=== PATIENT | female | born 1985 | race Caucasian/White ===

== ENCOUNTER 2018-10-02 23:17 | Inpatient (IN) | payer OTHER ==
[~2018-10-02] VITALS: Ht 160 cm; Wt 107.7 kg
[2018-10-02] MEDS ORDERED: COLA100C5 PO (23:24)
[2018-10-02] MEDS ORDERED: PROAAER10 INH (23:24)
[2018-10-02] MEDS ORDERED: SENN1TAB41 PO (23:24)
[2018-10-02] MEDS ORDERED: CARD120T4 PO (23:24)
[2018-10-02] MEDS: IPRATROPIUM 0.5MG/ALBUTEROL 2.5MG INH SOL UD 3ML (DUONEB)(J7620) NEB PRN ×2 (23:40→23:46)
[2018-10-02] MEDS ORDERED: methylPREDNISolone INJ 125 MG/2 ML VIAL (J2930) IV ONE (23:45)
[2018-10-03 00:18] LABS: BASO % 0.3 % (0.0-1.0); EOS # 0.5 10^3/uL (0.0-0.50); EOS % 4.1 % (0.0-3.0); HEMATOCRIT 38.6 % (36.0-47.0); LYMPH # 3.2 10^3/uL (1.5-4.5); LYMPH % 27.2 % (24.0-44.0); MEAN CORPUSCULAR HEMOGLOBIN 30.4 pg (27.0-33.0); MEAN CORPUSCULAR HGB CONC 33.7 g/dl (32.0-36.5); MEAN CORPUSCULAR VOLUME 90.2 fl (80.0-96.0); MONO # 0.8 10^3/uL (0.0-0.8); MONO % 6.8 % (0.0-5.0); NEUTROPHILS # 7.2 10^3/uL (1.8-7.7); NEUTROPHILS % 61.4 % (36.0-66.0); PLATELET COUNT, AUTOMATED 288 10^3/uL (150-450); RED BLOOD COUNT 4.28 10^6/uL (4.00-5.40); WHITE BLOOD COUNT 11.7 10^3/uL (4.0-10.0)
[2018-10-03] MEDS: IPRATROPIUM 0.5MG/ALBUTEROL 2.5MG INH SOL UD 3ML (DUONEB)(J7620) NEB PRN ×2 (00:18→00:29)
[2018-10-03 00:24] LABS: ALBUMIN 3.6 GM/DL (3.2-5.2); ALT/SGPT 18 U/L (12-78); BILIRUBIN,DIRECT < 0.1 MG/DL (0.0-0.2); BILIRUBIN,TOTAL 0.2 MG/DL (0.2-1.0); BLOOD UREA NITROGEN 14 MG/DL (7-18); CALCIUM LEVEL 8.7 MG/DL (8.5-10.1); CARBON DIOXIDE LEVEL 26 MEQ/L (21-32); CHLORIDE LEVEL 110 MEQ/L (98-107); CK-MB VALUE MASS < 1.0 NG/ML (<3.6); CPK CREATINE PHOSPHOKINASE 85 U/L (26-192); CREATININE FOR GFR 0.74 MG/DL (0.55-1.30); GLOMERULAR FILTRATION RATE > 60.0 (>60); GLUCOSE, FASTING 89 MG/DL (70-100); MB/CK RELATIVE INDEX 1.18 (< OR =4); NT-PRO BNP 115 PG/ML (<125); POTASSIUM SERUM 3.5 MEQ/L (3.5-5.1); SODIUM LEVEL 143 MEQ/L (136-145); TROPONIN I < 0.02 NG/ML (< 0.10)
[2018-10-03] MEDS ORDERED: ALBUTEROL SULFATE 2.5 MG/0.5 ML INH NEB SOLN NEB ONE (01:45)
[2018-10-03] MEDS ORDERED: dexameTHASONE 20 MG/5 ML VIAL (J1100) IV ONE (01:45)
[2018-10-03] MEDS ORDERED: ALBUTEROL SULFATE 2.5 MG/0.5 ML INH NEB SOLN NEB PRN (04:30)
[2018-10-03] MEDS ORDERED: MAG SULF 1GM/100ML (MAG RUN) 1 GM in APPROPRIATE DILUENT 1 EA IV ONE (04:30)
[2018-10-03] MEDS ORDERED: SYMB80INH INH (04:33)
[2018-10-03] MEDS ORDERED: VITA1CAP25 PO (04:33)
[2018-10-03] MEDS ORDERED: VITA50TA43 PO (04:33)
[2018-10-03] MEDS ORDERED: LEVAINH INH (04:33)
[2018-10-03] MEDS ORDERED: MIRA3350 PO (04:33)
[2018-10-03] MEDS ORDERED: MONTELUKAST 10 MG TAB PO SCH (05:00)
--- NOTE | 2018-10-03 05:15 | HPEPDOC ---
[facility] Medical History & Physical Date of Admission Oct 03, 2018 Date of Service: Oct 03, 2018 Primary Care Physician: A Other Provider PCP Dean Phan Attending Physician: SMITHA HARRIS MD History and Physical Time of service 4:35 AM CHIEF COMPLAINT: Dyspnea HISTORY OF PRESENT ILLNESS: Mr. Bueno is a 33 old female who presents with complaints of one day in duration, gradually worsening dyspnea. She is denies that change in the weather, heat, perfumes, or smoke trigger her asthma. But does report having "stomach problems" where after she eats the food doesn't he first on her stomach and thereafter has some indigestion and this occasionally this triggers her asthma. She lives out of town and has been traveling, and reports her left lower extremity slightly more swollen than her right. Per discussion with the ED attending despite receiving several neb treatments and steroids the wheezing and dyspnea have not resolved. REVIEW OF SYSTEMS: Review of systems negative except as listed in HPI PAST MEDICAL HISTORY: 1. Chronic HTN 2. Chronic Asthma 3. Denies a personal history of diabetes SOCIAL HISTORY: Quit smoking 4 years ago Drinking 1 year ago. Denies recreational drug use. Is traveling from out of town FAMILY HISTORY: Diabetes ALLERGIES: Please see below. HOME MEDICATIONS: Please see below. PHYSICAL EXAMINATION: VITAL SIGNS: Temperature 97.5, pulse 94, respiratory rate 22, blood pressure 112/63, pulse oximetry 95% on room air GENERAL APPEARANCE: Sleepy but arousable with vocal stimuli, well-nourished, well-developed, not in apparent distress HEENT: Normocephalic, atraumatic, lips acyanotic, mucous members are moist and pink CARDIOVASCULAR: Regular rate and rhythm, no murmurs, rubs or gallops, radial pulses are intact, external reason warm and well-perfused LUNGS: There is a normal air entry bilaterally, there is inspiratory and expiratory wheezing bilaterally ABDOMEN: Bowel signs are hypoactive, abdomen is soft and nontender on palpation MUSCULOSKELETAL: Range of motion is intact in all 4 extremities, both the right and the left calf are about 18 cm in diameter, Homans sign is negative INTEGUMENT: lips acyanotic, no generalized pallor NEUROLOGICAL: Nerves II-12 are grossly intact, speech is not dysarthric PSYCHIATRIC: Alert and oriented to person, place and time, able to understand and follow commands LABORATORY DATA: The CBC is remarkable for WBC count of 11.7, 6.8 monocytes, and 4.1, eosinophils. The Chemistry is remarkable for a chloride of 110. IMAGING: The chest x-ray is unremarkable but the final read is pending ASSESSMENT: is a 33-year-old female with past medical history of hypertension, asthma, and obesity will be admitted for management of acute asthma. PLAN: 1.Acute Asthma Possibly 2/2 GERD. DVT/PE is unlikely as her calfs are roughly the same diameter WBC # monocytes and eosinophils slightly elevated The chest x-ray did not show an infiltrate The patient is not sure what her best peak flow is but today it was 250 which is in the red zone (based on the booklet with the peak flow meter the ideal peak flow for her height and gender is approximately 430). Plan: admit to PCU / supplemental O2 / peak flow meter / IV mag sulfate once now / f/u VBG / Dunebs Q6H, w Albuterol Q4HP, Monteluklast / she received solumedrol in the ED we will start oral Prednisone today (day #2/5) w PPI / monitor peak flow daily (ideal peak flow 430 +) 2. 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 & referral for Bariatric surgery / recommend cardiovascular exercise for 40 min 4-5 days a week DVT Px w Enoxaparin Dispo: pending clinical course Laboratory Data CBC/BMP Laboratory Tests 10/02/18 23:50 10/02/18 23:51 Red Blood Count 4.28, Mean Corpuscular Volume 90.2, Mean Corpuscular Hemoglobin 30.4, Mean Corpuscular Hemoglobin Concent 33.7, Red Cell Distribution Width 13.0, Neutrophils (%) (Auto) 61.4, Lymphocytes (%) (Auto) 27.2, Monocytes (%) (Auto) 6.8 H, Eosinophils (%) (Auto) 4.1 H, Basophils (%) (Auto) 0.3, Neutrophils # (Auto) 7.2, Lymphocytes # (Auto) 3.2, Monocytes # (Auto) 0.8, Eosinophils # (Auto) 0.5, Basophils # (Auto) 0.0 Home Medications Scheduled Budesonide/Formoterol (Symbicort 80-4.5 Mcg Inhaler) 6.9 Gm Hfa.aer.ad, 2 PUFF INH BID Cholecalciferol (Vitamin D3) (Vitamin D3) 50,000 Unit Capsule, 50,000 UNIT PO 1XWK Diltiazem HCl (Cardizem) 120 Mg Tablet, 120 MG PO DAILY Docusate Sodium (Colace) 100 Mg Capsule, 100 MG PO DAILY Prednisone (Prednisone) 10 Mg Tablet, 10 MG PO TAPER Take 4 tabs daily x 3 days, then 3 tabs daily x 3 days, then 2 tabs daily x 3 days, then 1 tab daily x 3 days and stop Pyridoxine HCl (Vitamin B6) (Vitamin B-6) 50 Mg Tablet, 50 MG PO DAILY Scheduled PRN Albuterol Sulfate (Proair Hfa) 8.5 Gm Hfa.aer.ad, 2 PUFF INH Q4-6H PRN for wheezing Levalbuterol Hydrochloride (Xopenex Hfa) 15 Gm Hfa.aer.ad, 2 PUFF INH Q4-6H PRN for wheezing NEW RX, HAS NOT PICKED UP FROM PHARMACY YET Polyethylene Glycol 3350 (Miralax) 119 Gm Powder, 17 GM PO DAILY PRN for CONSTIPATION Miscellaneous Medications Sennosides/Docusate Sodium (Senna-S Tablet) 1 Each Tablet, 1 TAB PO Allergies Coded Allergies: gabapentin (Verified Allergy, Severe, 10/02/18) levofloxacin (Verified Allergy, Severe, 10/02/18) A-FIB/CHADSVASC A-FIB History Current/History of A-Fib/PAF?: No Current PO Anticoag Therapy: No SMITHA HARRIS MD Oct 03, 2018 05:15
[2018-10-03 05:28] LABS: VENOUS BASE EXCESS -1.9 (-2.0-2.0); VENOUS HCO3 22.4 MEQ/L (23.0-27.0); VENOUS O2 SATURATION 95.3 % (60.0-80.0); VENOUS PARTIAL PRESSURE O2 77.8 mmHg (30.0-50.0); VENOUS STANDARD HCO3 22.8 MEQ/L; VENOUS TOTAL CO2 23.5 MEQ/L (24.0-28.0)
[2018-10-03] MEDS ORDERED: MIRALAX *UNIT DOSE* 17GM PACKET PO PRN (05:30)
[2018-10-03] MEDS ORDERED: IPRATROPIUM 0.5MG/ALBUTEROL 2.5MG INH SOL UD 3ML (DUONEB)(J7620) NEB SCH (08:00)
[2018-10-03 08:44] VITALS: BP 125/74
[2018-10-03] MEDS ORDERED: predniSONE 20 MG TAB PO SCH (09:00)
[2018-10-03] MEDS ORDERED: PYRIDOXINE 50 MG TAB PO SCH (09:00)
[2018-10-03] MEDS ORDERED: DOCUSATE SODIUM 100 MG CAP PO SCH (09:00)
[2018-10-03] MEDS ORDERED: ENOXAPARIN 40 MG/0.4 ML SYRINGE (J1650) SC SCH (09:00)
[2018-10-03] MEDS ORDERED: PANTOPRAZOLE 40MG TAB (PROTONIX) PO SCH (09:00)
--- NOTE | 2018-10-03 09:49 | REP ---
HISTORY: Cough and dyspnea. COMPARISON: None. FINDINGS: The superior mediastinal structures are midline. The cardiac silhouette is unremarkable in size, shape and position. The diaphragmatic surfaces of the lungs are regular and the costophrenic angles are clear. The pulmonary calixto are clear. The imaged osseous structures are intact. IMPRESSION: There is no acute cardiopulmonary disease. Electronically Signed by Hernan Gramajo DO 10/03/2018 10:06 A
[2018-10-03 11:14] VITALS: BP 122/62
[2018-10-03 12:24] LABS: AMPHETAMINES LEVEL URINE NEGATIVE (NEGATIVE); BARBITURATES URINE NEGATIVE (NEGATIVE); BENZODIAZEPINES URINE NEGATIVE (NEGATIVE); CANNABINOIDS URINE NEGATIVE (NEGATIVE); COCAINE METABOLITE URINE NEGATIVE (NEGATIVE); METHADONE URINE NEGATIVE (NEGATIVE); OPIATES URINE NEGATIVE (NEGATIVE); PHENCYCLIDINE URINE NEGATIVE (NEGATIVE)
[2018-10-03] MEDS ORDERED: PRED10TA2 PO (12:41)
--- NOTE | 2018-10-03 14:03 | DS.PDOC ---
Discharge Summary General Date of Admission Oct 03, 2018 at 04:22 Date of Discharge AGAINST MEDICAL ADVICE 10/03/2018 Discharge Summary DISCHARGE AGAINST MEDICAL ADVICE DIAGNOSIS: Acute asthma exacerbation SECONDARY DIAGNOSIS: 1.Hypertension 2. Morbid obesity PROCEDURES PERFORMED DURING STAY: None. CONSULTANTS:None HOSPITAL COURSE: Patient left the hospital AGAINST MEDICAL ADVICE Patient was admitted earlier today for acute asthma exacerbation, she is traveling from outside facility and is driving a group of people before this that she is katy ant about leaving the hospital immediately she is not interested in waiting for any discharge advised her to stay in the hospital until she is feeling significantly better and improvement in her symptoms however she is not agreeable to this I'll provide her with a prescription for prednisone to help her with her breathing in an effort to arrange a safe disposition as possible for her. She denies any attempt to arrange for follow-up. Patient was made aware of all potential risks up to and including respiratory arrest and DISCHARGE MEDICATIONS: Please see below. ALLERGIES: Please see below. DISPOSITION: Leaving hospital AGAINST MEDICAL ADVICE to leave the area DISCHARGE CONDITION: Improved and Stable. PROGNOSIS: Guarded FOLLOW UP: As soon as possible ACTIVITY: As tolerated. DIET: As prior to admission Vital Signs/I&Os Vital Signs Date Time Temp Pulse Resp B/P (MAP) Pulse Ox O2 Delivery O2 Flow Rate FiO2 10/03/18 13:14 92 94 10/03/18 11:14 18 122/62 (82) Room Air 10/03/18 00:08 97.5 Laboratory Data Labs 24H Laboratory Tests 2 10/02/18 23:50: Anion Gap 7L, Glomerular Filtration Rate > 60.0, Calcium Level 8.7, Aspartate Amino Transf (AST/SGOT) 10, Alanine Aminotransferase (ALT/SGPT) 18, Alkaline Phosphatase 83, Total Bilirubin 0.2, Direct Bilirubin < 0.1, Total Creatine Kinase 85, Creatine Kinase MB < 1.0, Creatine Kinase MB Relative Index 1.18, Troponin I < 0.02, SU-Uiw-X-Type Natriuretic Peptide 115, Total Protein 7.0, Albumin 3.6, Albumin/Globulin Ratio 1.06 10/02/18 23:51: Immature Granulocyte % (Auto) 0.2, White Blood Count 11.7H, Red Blood Count 4.28, Hemoglobin 13.0, Hematocrit 38.6, Mean Corpuscular Volume 90.2, Mean Corpuscular Hemoglobin 30.4, Mean Corpuscular Hemoglobin Concent 33.7, Red Cell Distribution Width 13.0, Platelet Count 288, Neutrophils (%) (Auto) 61.4, Lymphocytes (%) (Auto) 27.2, Monocytes (%) (Auto) 6.8H, Eosinophils (%) (Auto) 4.1H, Basophils (%) (Auto) 0.3, Neutrophils # (Auto) 7.2, Lymphocytes # (Auto) 3.2, Monocytes # (Auto) 0.8, Eosinophils # (Auto) 0.5, Basophils # (Auto) 0.0, Nucleated Red Blood Cells % (auto) 0.0 10/03/18 02:53: Blood Gas Bicarbonate Standard 22.8, Venous Blood pH 7.400, Venous Blood Partial Pressure CO2 37.0L, Venous Blood Partial Pressure O2 77.8H, Venous Blood Total Carbon Dioxide 23.5L, Venous Blood HCO3 22.4L, Venous Blood Oxygen Saturation 95.3H, Venous Blood Base Excess -1.9 10/03/18 09:24: Urine Amphetamines Screen NEGATIVE, Urine Benzodiazepines Screen NEGATIVE, Urine Opiates Screen NEGATIVE, Urine Methadone Screen NEGATIVE, Urine Barbiturates Screen NEGATIVE, Urine Phencyclidine Screen NEGATIVE, Urine Cocaine Metabolite Screen NEGATIVE, Urine Cannabinoids Screen NEGATIVE CBC/BMP Laboratory Tests 10/02/18 23:50 10/02/18 23:51 Red Blood Count 4.28, Mean Corpuscular Volume 90.2, Mean Corpuscular Hemoglobin 30.4, Mean Corpuscular Hemoglobin Concent 33.7, Red Cell Distribution Width 13.0, Neutrophils (%) (Auto) 61.4, Lymphocytes (%) (Auto) 27.2, Monocytes (%) (Auto) 6.8 H, Eosinophils (%) (Auto) 4.1 H, Basophils (%) (Auto) 0.3, Neutrophils # (Auto) 7.2, Lymphocytes # (Auto) 3.2, Monocytes # (Auto) 0.8, Eosinophils # (Auto) 0.5, Basophils # (Auto) 0.0 Discharge Medications Scheduled Budesonide/Formoterol (Symbicort 80-4.5 Mcg Inhaler) 6.9 Gm Hfa.aer.ad, 2 PUFF INH BID, (Reported) Cholecalciferol (Vitamin D3) (Vitamin D3) 50,000 Unit Capsule, 50,000 UNIT PO 1XWK, (Reported) Diltiazem HCl (Cardizem) 120 Mg Tablet, 120 MG PO DAILY, (Reported) Docusate Sodium (Colace) 100 Mg Capsule, 100 MG PO DAILY, (Reported) Prednisone (Prednisone) 10 Mg Tablet, 10 MG PO TAPER Take 4 tabs daily x 3 days, then 3 tabs daily x 3 days, then 2 tabs daily x 3 days, then 1 tab daily x 3 days and stop Pyridoxine HCl (Vitamin B6) (Vitamin B-6) 50 Mg Tablet, 50 MG PO DAILY, (Reported) Scheduled PRN Albuterol Sulfate (Proair Hfa) 8.5 Gm Hfa.aer.ad, 2 PUFF INH Q4-6H PRN for wheezing, (Reported) Levalbuterol Hydrochloride (Xopenex Hfa) 15 Gm Hfa.aer.ad, 2 PUFF INH Q4-6H PRN for wheezing, (Reported) NEW RX, HAS NOT PICKED UP FROM PHARMACY YET Polyethylene Glycol 3350 (Miralax) 119 Gm Powder, 17 GM PO DAILY PRN for CONSTIPATION, (Reported) Miscellaneous Medications Sennosides/Docusate Sodium (Senna-S Tablet) 1 Each Tablet, 1 TAB PO, (Reported) Allergies Coded Allergies: gabapentin (Verified Allergy, Severe, 10/02/18) levofloxacin (Verified Allergy, Severe, 10/02/18) EBONY HARRIS MD Oct 03, 2018 14:03
[2018-10-03] MEDS ORDERED: SENOKOT S TAB PO SCH (21:00)
--- NOTE | 2018-10-03 21:34 | ECGEPIP ---
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
== END 2018-10-03 13:51 | disposition left against medical advice (07) | DRG 141 ==
LOC: M ED 23:17 → M ED INP 10-03 04:22
PROVIDERS: ADMIT Internal Medicine; ATTEND Internal Medicine
DX: J45.901 Unspecified asthma with (acute) exacerbation (principal); Z68.41 Body mass index [BMI] 40.0-44.9, adult; I10 Essential (primary) hypertension; E66.01 Morbid (severe) obesity due to excess calories; K21.9 Gastro-esophageal reflux disease without esophagitis; Z87.891 Personal history of nicotine dependence; Z79.899 Other long term (current) drug therapy; Z88.1 Allergy status to other antibiotic agents; Z88.8 Allergy status to other drugs, medicaments and biological substances